=== PATIENT | male | born 1955 | race Caucasian/White ===

== ENCOUNTER 2018-11-18 12:12 | Emergency (ER) | payer BC ==
[~2018-11-18] VITALS: Ht 185.4 cm; Wt 140.6 kg
[2018-11-18 12:37] VITALS: Ht 185.4 cm; Wt 140.6 kg
[2018-11-18] MEDS ORDERED: NORVASC10 MG PO (12:40)
[2018-11-18] MEDS ORDERED: LOPRESSOR25 MG PO (12:40)
[2018-11-18 13:42] LABS: APPEARANCE CLEAR (CLEAR); BILIRUBIN NEGATIVE (NEGATIVE); COLOR STRAW (YELLOW); GLUCOSE NEGATIVE (NEGATIVE); KETONE NEGATIVE (NEGATIVE); NITRITE NEGATIVE (NEGATIVE); PROTEIN NEGATIVE (NEGATIVE); SPECIFIC GRAVITY 1.005 (1.005-1.020); UROBILINOGEN NORMAL (NORMAL)
[2018-11-18 13:43] LABS: BACTERIA FEW /hpf (NONE SEEN); EPITHELIAL CELLS 0-5 /hpf (0-5); RED CELLS - URINE 0-5 /hpf (0-5); WHITE CELLS - URINE 0-5 /hpf (0-5)
[2018-11-18 13:55] LABS: ALBUMIN 3.6 g/dL (3.4-5.0); ALKALINE PHOSPHATASE 65 U/L (46-116); ALT (SGPT) 64 U/L (10-68); BASOPHILS 0.2 % (0-2); BILIRUBIN - TOTAL 1.06 mg/dL (0.2-1.3); CALC OSMOLALITY 277 mosm/kg (275-300); CALCIUM 8.7 mg/dL (8.5-10.1); CHLORIDE - SERUM 102 mmol/L (98-107); CREATININE - SERUM 0.8 mg/dL (0.6-1.3); EOSINOPHILS 0.9 % (0-7); GLUCOSE 118 mg/dL (74-106); HEMATOCRIT 47.8 % (42.0-54.0); HEMOGLOBIN 16.3 g/dL (13.5-17.5); IMMATURE GRANULOCYTES 0.3 % (0-5); LYMPHOCYTES 10.1 % (15-50); MCHC 34.1 g/dL (31.0-37.0); MEAN PLATELET VOLUME 11.2 fL (7.4-10.4); MONOCYTES 8.1 % (2-11); NEUTROPHILS 80.4 % (40-80); PLATELET COUNT 186 10x3/uL (130-400); POTASSIUM - SERUM 3.9 mmol/L (3.5-5.1); PROTEIN - SERUM 7.2 g/dL (6.4-8.2); RBC 5.43 10x6/uL (4.20-6.10); RDW 14.6 % (11.5-14.5); SODIUM 138 mmol/L (136-145); UREA NITROGEN 15 mg/dL (7-18); WBC 9.1 10x3/uL (4.8-10.8); eGFR NON AFRICAN AMERICAN > 90 mL/min (90-120)
[2018-11-18 18:46] VITALS: BP 142/88
== END 2018-11-18 18:47 | disposition home or self-care (01) ==
LOC: D.ER 12:12
PROVIDERS: Family Medicine
DX: R50.9 Fever, unspecified (principal); I10 Essential (primary) hypertension